=== PATIENT | female | born 1980 | race African-American/Black ===

== ENCOUNTER 2018-09-20 12:12 | Emergency (ER) | payer MEDICAID ==
[~2018-09-20] VITALS: Ht 172.7 cm; Wt 135.0 kg
[2018-09-20] MEDS ORDERED: SODIUM CHLORIDE 0.9% 1,000 ML IV ONE (12:48)
[2018-09-20] MEDS ORDERED: ACETAMINOPHEN 325MG TABLET PO STA (12:48)
[2018-09-20 12:59] LABS: BASOPHILS % 0.7 % (0.0-2.0); EOSINOPHILS % 3.5 % (0.0-5.0); HEMATOCRIT. 36.2 % (36.0-48.0); HEMOGLOBIN. 11.6 g/dL (12.0-16.0); LYMPHOCYTES % 34.5 % (20.0-50.0); MEAN CORPUSCULAR HEMOGLOBIN 21.9 pg (28.0-32.0); MEAN CORPUSCULAR VOLUME 68.5 fL (81.0-99.0); MEAN PLATELET VOLUME 9.1 fl (7.4-10.4); MONOCYTES % 7.4 % (2.0-8.0); NEUTROPHILS % 53.9 % (40.0-76.0); PLATELET 345 x1000/uL (130-400); RED BLOOD CELL COUNT 5.28 mill/uL (4.2-5.4); RED CELL DISTRIBUTION WIDTH 22.7 % (11.6-14.6)
[2018-09-20] MEDS ORDERED: ASPIRIN 81MG TABLET PO ONE (13:00)
[2018-09-20 13:04] LABS: CHLORIDE 105 mEq/L (98-107)
[2018-09-20 13:09] LABS: D-DIMER 0.59 mg/L FEU (<0.50); PROTHROMBIN TIME 10.1 sec (9.6-11.0)
[2018-09-20] MEDS: NITROGLYCERIN 0.4MG TABLET SL SL PRN ×3 (13:20→14:18)
[2018-09-20 13:24] LABS: PLATELET ESTIMATE NORMAL
[2018-09-20] MEDS ORDERED: IOHEXOL-350 100 ML BOTTLE ONE (16:08)
[2018-09-20 16:21] VITALS: BP 174/107
== END 2018-09-20 17:02 | disposition home or self-care (01) ==
LOC: ER 12:12 → CANBEDREQ 17:30
DX: R07.89 Other chest pain (principal); I47.1 Supraventricular tachycardia; R79.1 Abnormal coagulation profile; J45.909 Unspecified asthma, uncomplicated; I10 Essential (primary) hypertension
CPT/HCPCS: 36415; 71045; 71275; 80053; 83880; 84484; 85025; 85379; 85610; 93005; 99284; J7030; Q9967; Z7610